=== PATIENT | female | born 1995 | race Caucasian/White ===

== ENCOUNTER 2017-01-01 15:25 | Outpatient (CLI) | payer MEDICAID ==
[~2017-01-01 15:25] MED LIST: ACYC400T PO; ALBU8.5H3 INH; POLY10DR3 OP
[2017-01-01] MEDS ORDERED: ACETAMINOPHEN 500 MG TABLET PO ONE (16:00)
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
== END 2017-01-01 16:02 ==
LOC: MC 15:25 → OBOBS 15:25
PROVIDERS: ATTEND Obstetrics & Gynecology
DX: O26.893 Other specified pregnancy related conditions, third trimester (principal); R10.9 Unspecified abdominal pain; Z3A.36 36 weeks gestation of pregnancy

== ENCOUNTER 2017-01-07 06:00 | Inpatient (IN) | payer MEDICAID ==
[~2017-01-07] VITALS: Ht 154.9 cm; Wt 80.9 kg
[~2017-01-07 06:00] MED LIST changes: -POLY10DR3 OP
[2017-01-07] MEDS ORDERED: CALCIUM CARBONATE 500mg Chewable TAB PO PRN ×2 (06:15→13:45)
[2017-01-07] MEDS ORDERED: OXYTOCIN 30 UNIT in D5LR 500 ML ONE (06:15)
[2017-01-07] MEDS ORDERED: LIDOCAINE 1% (10mg/ml) 2ml SDV ID PRN (06:15)
[2017-01-07] MEDS ORDERED: MAG-AL + SIM LIQUID 30 ML UDC PO PRN ×2 (06:15→13:45)
[2017-01-07] MEDS ORDERED: ACETAMINOPHEN 500 MG TABLET PO PRN ×2 (06:15→13:45)
--- OUTSIDE RECORDS SUMMARY | 2017-01-07 06:15 | XMS REPORT | Continuity of Care Document ---
Author Author [facility]ALM[facility] Organization [facility] Address Unknown Phone Unavailable Care Team Providers Care Partner Marketing Intern Name Role Phone SUMMER SUGGS MD Primary Care Physician [phone] Insurance Providers Guarantor Betty Anthony Address [address] [place] [address] Email DENIED/09/19/16 Payer [facility] Plan Policy Number [id number] Subscriber's Name Betty Anthony Relationship 18 Self Effective Date 16 Expiration Date 17 Advance Directives Directive Response Recorded Date/Time Ordered Resuscitation Status Full Code 01/01/17 3:30pm Problems Active Problems Medical Problem Onset Date Status 37 weeks Unknown Acute Acute bronchitis Unknown Acute Asthma exacerbation Unknown Acute Asthma exacerbation Unknown Acute Asthma exacerbation Unknown Acute carbon monoxide exposure Unknown Acute Past Problems Medical Problem Onset Date Pandey's palsy affecting Unknown Conjunctivitis Unknown Medications Current Home Medications Medication Dose Units Route Directions Days Qty Instructions Start Date Acyclovir 400 Mg Tablet 1 Tab Oral 5 Times Daily 10 Days 50 Tablet Albuterol Sulfate (Albuterol Sulfate Hfa) 8.5 Gm Hfa.aer.ad 1 Puff Inhalation Every 4 Hours as needed for Prn Orders 11/10/14 Polymyxin B Sulf/Trimethoprim (Polymyxin B-Tmp Eye Drops) 10 Ml Drops 1 Drop Ophthalmic Four Times Daily 09/19/16 Social History Social History Problem Response Recorded Date/Time Onset Date Status Hx Substance Use No 09/19/2016 10:31am Not Applicable Not Applicable Hx Alcohol Use No 09/19/2016 10:31am Not Applicable Not Applicable Has the pt used tobacco in the last 12 months No 05/08/2013 1:15pm Not Applicable Not Applicable Tobacco Usage none 11/18/2014 7:28am Not Applicable Not Applicable Hospital Discharge Instructions No hospital discharge instructions. Plan of Care Discharge Date 01/01/17 4:02pm Prescriptions See Medication Section Functional Status No functional status results. Allergies, Adverse Reactions, Alerts No known allergies. Immunizations Query Response on File Recorded Date/Time Hx Influenza Vaccination Y fall 201311/10/14 7:54pm Hx Pneumococcal Vaccination Yes 11/10/14 7:54pm Hx Tetanus, Diptheria, Pertussis Yes 11/10/14 7:54pm Hx Influenza Vaccination Y fall 201311/10/14 7:54pm Hx Tetanus, Diptheria, Pertussis Yes 11/10/14 7:54pm Vital Signs No known vital signs results. Results No known relevant diagnostic tests, laboratory data and/or discharge summary. Procedures No known history of procedures. Encounters Encounter Location Arrival/Admit Date Discharge/Depart Date Attending Provider Departed Clinic [facility] 01/01/17 3:25pm 01/01/17 4:02pm ADDISON TORRES MD
--- OUTSIDE RECORDS SUMMARY | 2017-01-07 06:15 | XMS REPORT | Continuity of Care Document ---
Author Author [facility] Organization [facility] Address Unknown Phone Unavailable Care Team Providers Care Truck Repair Service Estimator Name Role Phone SUMMER SUGGS MD Primary Care Physician [phone] Insurance Providers Guarantor Betty Anthony Address [address] [place] [address] Email DENIED/09/19/16 Payer [facility] Plan Policy Number [id number] Subscriber's Name Betty Anthony Relationship 18 Self Effective Date 16 Expiration Date 16 Advance Directives Directive Response Recorded Date/Time Advanced Directives Type None 09/19/16 10:24am Chief Complaint and Reason for Visit Chief Complaint Neuro Symptoms/Deficits Reason for Visit Pandey's palsy affecting Problems Active Problems Medical Problem Onset Date [...] none 11/18/2014 7:28am Not Applicable Not Applicable Query Response Start Date Stop Date Smoking Status Unknown if ever smoked Hospital Discharge Instructions No hospital discharge instructions. Plan of Care Discharge Date 09/19/16 11:37am Disposition 01 DISCHARGED HOME, SELF-CARE Condition at Discharge Stable Instructions/Education Provided Pandey Palsy (ED) Prescriptions See Medication Section Referrals ADDISON TORRES MD Address: [address] [place] [address] [place] [phone] SUMMER SUGGS MD Address: [address] [place] [address] [place] [phone] Additional Instructions/Education Follow-up with your OB to see if prednisone would be appropriate for your stage of , I am not comfortable prescribing that at this time Care Plan and Goals Physician Care Plan Problem: Pandey's palsy Goal: Follow up with primary care provider Instructions: Take medications and follow care plan as discussed/written Functional Status No functional status results. Allergies, Adverse Reactions, Alerts No known allergies. Immunizations Query Response on File Recorded Date/Time Hx Influenza Vaccination Y fall 201311/10/14 7:54pm Hx Pneumococcal Vaccination Yes 11/10/14 7:54pm Hx Tetanus, Diptheria, Pertussis Yes 11/10/14 7:54pm Hx Influenza Vaccination Y fall 201311/10/14 7:54pm Hx Tetanus, Diptheria, Pertussis Yes 11/10/14 7:54pm Vital Signs Acute Vital Signs Vital Response Date/Time Temperature (Fahrenheit) 99.2 deg F (96.8 - 99.1) 09/19/2016 10:24am Temperature (Calculated Celsius) 37.04919 degrees C (36.0 - 37.3) 09/19/2016 10:24am Pulse Rate (adult) 99 bpm (60 - 100) 09/19/2016 11:37am Respiratory Rate 14 breaths/min (10 - 20) 09/19/2016 11:37am O2 Sat by Pulse Oximetry 96 % (90 - 100) 09/19/2016 11:37am Blood Pressure 101/59 mm Hg 09/19/2016 11:37am Height (Feet) 5 feet 09/19/2016 10:24am Height (Inches) 1.00 inches 09/19/2016 10:24am Weight (Kilograms) 70.900 kg 09/19/2016 10:24am Body Mass Index (BMI) 29.0 09/19/2016 10:24am Results No known relevant diagnostic tests, laboratory data and/or discharge summary. Procedures No known history of procedures. Encounters Encounter Location Arrival/Admit Date Discharge/Depart Date Attending Provider Departed Emergency Room [facility] 09/19/16 10:22am 09/19/16 11: 37am DAMIAN HWANG MD Departed Emergency Room [facility] 08/26/16 4:58pm 08/26/16 5: 31pm MARIANNA PAGE APRN Recent Diagnosis
[2017-01-07] MEDS: LR 1,000 ML IV PRN ×2 (06:37→09:04)
[2017-01-07 06:41] VITALS: BP 108/57; PULSE 90; RESP 20; TEMP 98.2; O2SAT 98
[2017-01-07 06:42] LABS: HCT - HEMATOCRIT 33.2 % (36-46); HGB - HEMOGLOBIN 11.1 GM/DL (12-16); MEAN CORPUSCULAR HGB CONC(MCHC 33.4 GM/DL (31-37); MEAN CORPUSCULAR VOLUME 80.8 UM3 (80-100); RED BLOOD COUNT 4.11 M/MM3 (4.00-5.20)
[2017-01-07] MEDS ORDERED: AMPICILLIN 2 G in NORMAL SALINE 100 ML IV ONE (06:45)
[2017-01-07] MEDS ORDERED: D5LR 1,000 ML IV PRN (07:00)
--- NOTE | 2017-01-07 08:34 | ANESOB ---
Epidural/ Date/Time DATE: 01/07/17 TIME: 08:32 Preop Diagnosis Procedure: Labor Epidural Plan: Epidural Height: 5 ' 1.00 " Weight: 80.900 kg BMI: kg/m2 P:1 Medications & Allergies Inpatient Medications Current Medications Medications (Trade) Dose Ordered Sig/Tonny Start Time Stop Time Status Last Admin Dose Admin Lidocaine HCl 0.2 mg 0.2 mg PRN PRN 01/07/17 06:15 Lactated Ringer's (Lactated Ringers) 1,000 ml @ 0 mls/hr Q0M PRN 01/07/17 06:11 01/07/17 06:37 0 MLS/HR Acetaminophen (Tylenol Extra Strength) 1-2 TABS = 500-1,000 MG Q4H PRN 01/07/17 06:15 Al Hydroxide/Mg Hydroxide (Maalox) 30 ml Q4H PRN 01/07/17 06:15 Calcium Carbonate 1-2 TABS Q2H PRN 01/07/17 06:15 Ampicillin Sodium 1 g/Sodium Chloride 100 ml @ 200 mls/hr Q4H 01/07/17 10:30 Dextrose/Lactated Ringer's (D5lr) 1,000 ml @ 0 mls/hr Q0M PRN 01/07/17 07:00 01/07/17 06:55 0 MLS/HR Albuterol Sulfate (Albuterol Sulfate Hfa) 8.5 Gm Hfa.aer.ad, 1 PUFF INH Q4HR PRN for PRN ORDERS, (Reported) Last Taken: on 12/24/16 1200 Coded Allergies: No Known Allergies (Unverified , 01/05/17) Medical/Surgical History Anesthesia PMH: Reports: Asthma, Denies: *Diabetes, Anesthesia Reactions, Malignant Hyperthermia Smoking Status: Former smoker # of Packs/Tins per Day: 1.0 # of Years: 6 Does patient use chewing tobac: No Second Hand Exposure: Yes Substance Use Type: does not use Alcohol Intake: none Anesthesia Adverse Reactions: FOUND none Family Hx of Anesthesia Advers: none Hx of Motion Sickness: No Complications During : No Pertinent Findings Laboratory Tests 01/07/17 06:31 EKG Rhythm: Sinus Rhythm Physical Exam Respiratory: Lungs clear Cardiovascular: Regular rate, rhythm, Rub Airway Assessment Mallampati Score: I TMD: 3 Fingerbreadths Neck Extension: Good Teeth: Chipped Teeth/Crowns Overall Assessment: No Airway Concerns ASA: 2 Discussion Discussed risks/options/alternatives of anesthesia. Patient consents. Nursing pain assessment noted. Present for Discussion: Present: Family Member Attestation Statement Prior to the delivery of any anesthetic medication, I examined the patient, developed the plan, obtained the patient's consent and discussed the risk and benefits of the procedure with the patient/guardian. If the note happens to be signed after anesthesia start time, it is only due to providing efficient care of the patient and documenting at a time when the computer is available. SERGE HUITRON I SEATER ASSEMBLER January 07, 2017 08:34
[2017-01-07] MEDS ORDERED: ONDANSETRON 4mg/2ml INJECTION IV PRN (08:45)
[2017-01-07] MEDS ORDERED: DiphenhydrAMINE 50 MG/ML INJECTION IV PRN (08:45)
[2017-01-07] MEDS ORDERED: NALOXONE 0.4mg/ml INJECTION IV PRN (08:45)
[2017-01-07] MEDS ORDERED: ROPIVACAINE 1% 200 MG, SUFENTANIL 50 MCG in NORMAL SALINE 80 ML EPI PRN (08:45)
[2017-01-07] MEDS ORDERED: LIDOCAINE 2%/EPI 1:200,000 20ml SDV ONE (09:53)
[2017-01-07] MEDS ORDERED: AMPICILLIN 1 G in NORMAL SALINE 100 ML IV SCH (10:30)
[2017-01-07] MEDS ORDERED: OXYTOCIN 30 UNIT in D5W 500 ML IV ONE (13:36)
[2017-01-07] MEDS ORDERED: OXYTOCIN 30 UNIT in D5LR 500 ML IV ONE (13:36)
[2017-01-07] MEDS ORDERED: DiphenhydrAMINE 25 MG CAPSULE PO PRN (13:45)
[2017-01-07] MEDS ORDERED: PHENYLEPHRINE RECTAL SUPPOSITORY RECTALLY PRN (13:45)
[2017-01-07] MEDS ORDERED: MILK OF MAGNESIA 30 ML SUSP PO PRN (13:45)
[2017-01-07] MEDS ORDERED: HYDROCORTISONE 2.5% CREAM 30 GM RECTALLY PRN (13:45)
[2017-01-07] MEDS: IBUPROFEN 800 MG TABLET PO PRN (15:43)
--- NOTE | 2017-01-07 16:47 | NUR ---
Epidural Epidural catheter removed without complications, tip intact, no S/S of infection noted. Area cleansed with alcohol, betadine and covered with a bandaid. Pt. educated about S/S of infection and to call doctor with concerns.
[2017-01-07] MEDS: HYDROCODONE/APAP 5 mg/325 mg TABLET PO PRN ×2 (16:53→21:02)
--- NOTE | 2017-01-07 17:02 | PNPDOC ---
[facility] Prog Note 01/07/17 no c/o q&a-krb ADDISON TORRES MD January 07, 2017 17:02
--- NOTE | 2017-01-07 17:15 | ANESPO ---
Post-Op Note Date 01/07/17 Time: 17:14 Status Pt Participated in Evaluation: Pt participated in person Vital Signs Date Time Temp Pulse Resp B/P Pulse Ox O2 Delivery O2 Flow Rate FiO2 01/07/17 06:41 98.2 90 20 108/57 98 Respiratory Function: Airway patent, Regular respirations Cardiovascular Function: Regular pulse Mental Status: Alert/oriented Pain Level Intensity: 0 Hydration: Taking po fluids Complications during Recovery None apparent Follow-Up Instructions Instructions Per Surgeon SHIRLEY CHE CRNA January 07, 2017 17:15
[2017-01-07 17:40] VITALS: BP 106/57; PULSE 98; RESP 18; TEMP 98.4; O2SAT 97
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
--- NOTE | 2017-01-07 19:08 | NUR ---
Progress Note Pt ambulated to bathroom with RN supervision and denied dizziness. Pt unable to void at this time. RN educated pt about pericare and skin care. Pt verbalized understanding. RN provided pericare and skin care. Pad and ice pack changed with tucks pads and benzo spray applied. Will continue to monitor per plan of care.
[2017-01-07 21:03] VITALS: BP 95/56; PULSE 81; RESP 20; TEMP 98
--- NOTE | 2017-01-07 21:31 | LDNF ---
DATE: 01/07/2017 DIAGNOSES 1. 21-year-old white female, G2, P1 at 37.4 wks gestational age. 2. Pitocin induction of labor for IUGR. 3. Epidural anesthesia. 4. Artificial rupture of membranes. 5. GBS prophylaxis. 6. Spontaneous vaginal delivery. 7. Male , 8/9 Apgars, 2493 grams (5 pounds 7.9 ounces) ([place]). 8. Bilateral periurethral lacerations - repaired. 9. Under coiled umbilical cord. This is a patient of mine who was induced today because of IUGR and baby not growing appropriately confirmed by sonogram. Cervix was initially 2 cm. Pitocin reached a maximum of 22 milliunits a minute. Artificial rupture of membranes was clear. Patient made it to complete dilation and then had a spontaneous vaginal delivery from the OA position. There was a tight nuchal cord x1 that I tried to reduce and deliver through so I could let blood drain into baby but it was too tight to do that so I had to doubly clamp it and cut it and unwrap it and then delivered the baby. was bulb suctioned after delivery of the head and then again after delivery of the body. The infant was initially placed on mother's abdomen. The placenta delivered spontaneously and was intact. Perineum was intact with the exception of bilateral periurethrals that were brought together in a 3-0 chromic running nonlocking fashion. EBL was 250 mL. Maternal blood type is O+, rubella is immune. Patient received two doses of ampicillin for GBS prophylaxis. Patient received an epidural block and a Pickering catheter. At the time of dictation mother and infant are doing well. Placenta was examined and the umbilical cord was noted to be almost straight with little to no coiling. I sent the placenta to pathology because of the IUGR. VASS[facility] BROTHERS MEDICAL CENTERMillicent
--- NOTE | 2017-01-08 00:22 | NUR ---
Chart Check 24 hour chart check completed
[2017-01-08] MEDS: HYDROCODONE/APAP 5 mg/325 mg TABLET PO PRN ×5 (01:53→21:53)
[2017-01-08] MEDS: IBUPROFEN 800 MG TABLET PO PRN ×3 (01:53→21:53)
--- NOTE | 2017-01-08 02:09 | NUR ---
SHIFT SUMMARY: RN assumes care at 1945. VSS, pt's cramping and vaginal pain controlled with PO Motrin, Hanna 5 and ice packs. Fundus firm at 3 below umbilicus, light lochia. Pt up ad rudy in room w/o complications. General diet tolerated. Pt voiding and performing own personal cares. IV saline locked in left forearm. Bonding and caring for baby appropriately. Buddy present and providing care.
[2017-01-08 03:20] VITALS: BP 93/54; PULSE 77; RESP 16; TEMP 97.9
[2017-01-08] MEDS: DOCUSATE CALCIUM 240 MG CAPSULE PO SCH (07:27)
[2017-01-08 08:20] LABS: HCT - HEMATOCRIT 33.2 % (36-46); HGB - HEMOGLOBIN 10.8 GM/DL (12-16); MEAN CORPUSCULAR HGB 26.9 UUG (26-34); MEAN CORPUSCULAR HGB CONC(MCHC 32.5 GM/DL (31-37); MEAN CORPUSCULAR VOLUME 82.6 UM3 (80-100); MEAN PLATELET VOLUME 9.5 UM3 (9.4-12.4); RED BLOOD COUNT 4.02 M/MM3 (4.00-5.20); WBC - WHITE BLOOD COUNT 14.5 T/MM3 (4.5-11.0)
[2017-01-08 09:20] VITALS: BP 97/59; PULSE 74; RESP 16; TEMP 97.8
--- NOTE | 2017-01-08 10:30 | PNPDOC ---
[facility] Prog Note 01/08/17 vss af no c/o cont routine care path q&a-krb ADDISON TORRES MD January 08, 2017 10:30
--- NOTE | 2017-01-08 13:52 | NUR ---
Shift Summary Pt VSS throughout this shift. up and around in room, providing self/ cares. showered this am. Voiding. Fundus firm with minimal rubra lochia. IV discontinued. PP lab WNL. Pain controlled with motrin and norco. Tolerating a regular diet. Pt has no concerns at this time. Resting in room with family.
[2017-01-08 16:23] VITALS: BP 100/50; PULSE 79; RESP 18; TEMP 97.8
[2017-01-09 00:01] VITALS: BP 96/50; PULSE 77; RESP 18; TEMP 97.9
--- NOTE | 2017-01-09 02:27 | NUR ---
Shift Summary VSS, up ad rudy, performs all self and cares. Tolerates PO pain medication, and is adequate for pain control. Planning discharge later today.
[2017-01-09] MEDS: HYDROCODONE/APAP 5 mg/325 mg TABLET PO PRN ×2 (04:42→10:26)
[2017-01-09 07:45] VITALS: BP 99/55; PULSE 100; RESP 16; TEMP 97.8; O2SAT 94
[2017-01-09] MEDS: IBUPROFEN 800 MG TABLET PO PRN (07:52)
[2017-01-09] MEDS: DOCUSATE CALCIUM 240 MG CAPSULE PO SCH (07:53)
--- NOTE | 2017-01-09 12:50 | PNPDOC ---
[facility] Prog Note 01/09/17 vss af desires dc instructions reviewed f/u 5-6 wks q&a-krb ADDISON TORRES MD January 09, 2017 12:50
[2017-01-09] MEDS ORDERED: IBUP-1547 PO (12:54)
[2017-01-09] MEDS ORDERED: HYDR-4246 PO (12:54)
== END 2017-01-09 13:35 | disposition home or self-care (01) | DRG 775 ==
LOC: MC 06:00 → EEVIPCON 06:00
PROVIDERS: ADMIT Obstetrics & Gynecology; ATTEND Obstetrics & Gynecology
PROC: 10E0XZZ Delivery of Products of Conception, External Approach (ICD-10-PCS; principal; 2017-01-07)
PROC: 0UQMXZZ Repair Vulva, External Approach (ICD-10-PCS; 2017-01-07)
PROC: 10907ZC Drainage of Amniotic Fluid, Therapeutic from Products of Conception, Via Natural or Artificial Opening (ICD-10-PCS; 2017-01-07)
PROC: 3E033VJ Introduction of Other Hormone into Peripheral Vein, Percutaneous Approach (ICD-10-PCS; 2017-01-07)
DX: O36.5930 Maternal care for other known or suspected poor fetal growth, third trimester, not applicable or unspecified (principal); O71.82 Other specified trauma to perineum and vulva; O69.1XX0 Labor and delivery complicated by cord around neck, with compression, not applicable or unspecified; O69.89X0 Labor and delivery complicated by other cord complications, not applicable or unspecified; Z3A.37 37 weeks gestation of pregnancy; Z37.0 Single live birth; J45.909 Unspecified asthma, uncomplicated; H91.92 Unspecified hearing loss, left ear
CPT/HCPCS: 36415; 85027